=== PATIENT | female | born 1995 | race Hispanic/Latino ===

== ENCOUNTER 2018-09-11 01:09 | Emergency (ER) | payer OTHER ==
[2018-09-11] MEDS ORDERED: LIDOCAINE HCL 2% VISCOUS 15 ML UDCUP ONE (01:34)
[2018-09-11] MEDS ORDERED: MAG HYDROX/AL HYDROX/SIMETH ES 30 ML SUSP UDCUP ONE (01:34)
[2018-09-11] MEDS ORDERED: FAMOTIDINE/PF 20 MG/2 ML VIAL IV ONE (02:19)
[2018-09-11 02:45] LABS: CREATININE 0.7 mg/dL (0.5-1.5)
[2018-09-11 02:50] LABS: ALBUMIN 3.6 g/dL (3.5-5.0); BILIRUBIN,TOTAL 0.5 mg/dL (0.2-1.0); TOTAL PROTEIN, SERUM 6.9 g/dL (6.0-8.3)
[2018-09-11 03:00] LABS: BASOPHILS % (AUTO) 0.3 % (0.0-5.0); HEMATOCRIT 37.9 % (36-48); LYMPHOCYTES % (AUTO) 22.5 % (21.0-51.0); MEAN CORPUSCULAR HEMOGLOBIN 28.4 pg (27.0-33.0); MEAN CORPUSCULAR VOLUME 86.2 fL (80-100); MONOCYTES % (AUTO) 9.3 % (3.0-13.0); NEUTROPHILS % (AUTO) 66.9 % (40.0-77.0); NUCLEATED RED BLOOD CELLS 0.1 % (0.0-0.19); PLATELET COUNT (AUTO) 256 K/uL (130-400); WHITE BLOOD COUNT (AUTO) 12.9 K/uL (4.8-10.8)
== END 2018-09-11 04:18 | disposition home or self-care (01) ==
LOC: EDH 01:09
DX: R10.13 Epigastric pain (principal); R10.9 Unspecified abdominal pain; R11.0 Nausea; M54.9 Dorsalgia, unspecified; R06.02 Shortness of breath; Z88.0 Allergy status to penicillin
CPT/HCPCS: 36415; 71045; 76705; 80053; 83690; 84484; 84702; 85025; 93005; 96374; 99284; J3490

== ENCOUNTER 2020-11-27 09:32 | Observation (INO) | payer MEDICAID ==
[~2020-11-27] VITALS: Ht 157.5 cm; Wt 101.2 kg
[2020-11-27] MEDS ORDERED: CELESTONE SOLUSPAN 6 MG/ML 5ML VIAL IM SCH (09:45)
[2020-11-27 10:25] LABS: BASOPHILS % (AUTO) 0.2 % (0.0-5.0); EOSINOPHILS % (AUTO) 0.9 % (0.0-8.0); HEMATOCRIT 31.3 % (36-48); LYMPHOCYTES % (AUTO) 25.9 % (21.0-51.0); MEAN CORPUSCULAR HEMOGLOBIN 28.8 pg (27.0-33.0); MEAN CORPUSCULAR HGB CONC 33.9 g/dL (32.0-36.0); MEAN CORPUSCULAR VOLUME 85.1 fL (79-99); MONOCYTES % (AUTO) 7.1 % (3.0-13.0); NEUTROPHILS % (AUTO) 65.6 % (40.0-77.0); PLATELET COUNT (AUTO) 302 K/uL (130-400); RED BLOOD CELL COUNT(AUTO) 3.68 MIL/uL (4.00-5.50); RED CELL DISTRIBUTION WIDTH 12.3 % (11.0-15.5); WHITE BLOOD COUNT (AUTO) 9.8 K/uL (4.8-10.8)
[2020-11-27 10:29] LABS: CREATININE 0.7 mg/dL (0.5-1.5)
[2020-11-27 10:29] LABS: APPEARANCE,URINE Clear (CLEAR); BILIRUBIN,URINE Negative (NEGATIVE); COLOR,URINE Yellow (YELLOW); GLUCOSE, URINE (UA) Negative (NEGATIVE); KETONES,URINE Negative (NEGATIVE); LEUKOCYTE ESTERASE ,URINE Moderate (NEGATIVE); NITRATE,URINE Negative (NEGATIVE); OCCULT BLOOD,URINE Negative (NEGATIVE); PH,URINE 6.5 (5.0-8.0); PROTEIN,URINE Negative (NEGATIVE); UROBILINOGEN,URINE 0.2 mg/dL (0.2-1.0)
[2020-11-27 10:37] LABS: ALBUMIN 2.7 g/dL (3.5-5.0); BILIRUBIN,TOTAL 0.1 mg/dL (0.2-1.0); TOTAL PROTEIN, SERUM 7.2 g/dL (6.0-8.3); URIC ACID 3.5 mg/dL (2.6-7.2)
[2020-11-27] MEDS ORDERED: CELESTONE SOLUSPAN 6 MG/ML 5ML VIAL ONE (10:46)
[2020-11-27 11:19] LABS: BACTERIA,URINE Few /HPF (None Seen); RBC,URINE None Seen /HPF (0-1); SQUAMOUS EPITHELIAL CELL,UR 30-50 /HPF (0-2)
[2020-11-27 13:15] VITALS: BP 133/70
[2020-11-27 13:31] LABS: INR 0.97 (0.85-1.15); PROTHROMBIN TIME 10.1 SEC (9.6-11.6)
[2020-11-27 15:45] VITALS: BP 136/70
[2020-11-27] MEDS ORDERED: PNV1TABL17 PO (19:06)
[2020-11-27 19:47] VITALS: BP 142/75
[2020-11-27] MEDS: ACETAMINOPHEN 500 MG TABLET PO PRN (20:28)
[2020-11-27 23:39] VITALS: BP 93/53
[2020-11-28 04:19] VITALS: BP 118/54
[2020-11-28 07:07] VITALS: BP 113/52
[2020-11-28] MEDS: ACETAMINOPHEN 500 MG TABLET PO PRN (07:51)
[2020-11-28] MEDS ORDERED: CELESTONE SOLUSPAN 6 MG/ML 5ML VIAL IM SCH (09:00)
[2020-11-28 11:48] VITALS: BP 125/60
[2020-11-28 12:30] LABS: COLLECTION PERIOD,URINE 24 HR; TOTAL VOLUME 24HRS,URINE 2100 mL
[2020-11-28 12:34] LABS: CREATININE,SERUM FOR CRCL 0.7 mg/dL (0.6-1.3)
[2020-11-28 12:37] LABS: TPROTEIN TIMED,URINE 12 mg/dL; TPROTEIN U,24HR CALC 252 mg/24HR (0-165)
== END 2020-11-28 12:30 | disposition home or self-care (01) ==
LOC: UNDOADMOB 09:32 → INTOOBSV 09:32 → OBSVTOIN 09:32 → WSH 09:32
PROVIDERS: ADMIT Specialist; ATTEND Specialist
DX: O16.3 Unspecified maternal hypertension, third trimester (principal); Z88.0 Allergy status to penicillin; Z3A.33 33 weeks gestation of pregnancy
CPT/HCPCS: 36415; 59025; 76819; 80053; 81001; 82575; 84156; 84550; 85025; 85384; 85610; 85730; 87088; 96372; G0378 ×26; J0702 ×2

== ENCOUNTER 2020-12-07 17:07 | Observation (INO) | payer MEDICAID ==
[~2020-12-07 17:07] MED LIST: PNV1TABL17 PO
[2020-12-07 18:38] LABS: APPEARANCE,URINE Clear (CLEAR); BILIRUBIN,URINE Negative (NEGATIVE); COLOR,URINE Yellow (YELLOW); GLUCOSE, URINE (UA) Negative (NEGATIVE); KETONES,URINE Negative (NEGATIVE); LEUKOCYTE ESTERASE ,URINE Negative (NEGATIVE); NITRATE,URINE Negative (NEGATIVE); OCCULT BLOOD,URINE Negative (NEGATIVE); PH,URINE 5.5 (5.0-8.0); PROTEIN,URINE Negative (NEGATIVE)
== END 2020-12-07 18:54 | disposition home or self-care (01) ==
LOC: LDH 17:07
PROVIDERS: ADMIT Specialist; ATTEND Specialist
DX: O36.8130 Decreased fetal movements, third trimester, not applicable or unspecified (principal); O26.893 Other specified pregnancy related conditions, third trimester; R51.9 Headache, unspecified; Z86.69 Personal history of other diseases of the nervous system and sense organs; Z3A.35 35 weeks gestation of pregnancy
CPT/HCPCS: 59025; 81003; G0378